=== PATIENT | female | born 1955 | race Two or more races ===

== ENCOUNTER 2021-07-09 13:30 | Outpatient (CLI) | payer OTHER | END 2021-07-09 13:32 | disposition home or self-care (01) | LOC: MAMO-SONO 13:30 | DX: N64.59 Other signs and symptoms in breast (principal); N64.4 Mastodynia; Z12.31 Encounter for screening mammogram for malignant neoplasm of breast ==

== ENCOUNTER → 2022-07-02 | Outpatient (CLI) | payer OTHER | END | disposition home or self-care (01) | LOC: RAD 16:14 | PROVIDERS: ATTEND Physical Medicine & Rehabilitation | DX: M25.511 Pain in right shoulder (principal); M75.21 Bicipital tendinitis, right shoulder ==

== ENCOUNTER 2022-09-03 14:45 | Outpatient (CLI) | payer OTHER | END 2022-09-03 14:49 | disposition home or self-care (01) | LOC: SONOGRAMA 14:45 | DX: N20.0 Calculus of kidney (principal) ==

== ENCOUNTER 2023-04-26 13:43 | Outpatient (CLI) | payer OTHER | END 2023-04-26 13:49 | disposition home or self-care (01) | LOC: RAD 13:43 | PROVIDERS: ATTEND Physical Medicine & Rehabilitation | DX: M17.12 Unilateral primary osteoarthritis, left knee (principal) ==

== ENCOUNTER 2023-07-21 11:02 | Outpatient (CLI) | payer OTHER | END 2023-07-21 11:08 | disposition home or self-care (01) | LOC: RAD 11:02 | PROVIDERS: ATTEND Physical Medicine & Rehabilitation | DX: M17.12 Unilateral primary osteoarthritis, left knee (principal); M25.562 Pain in left knee ==

== ENCOUNTER 2023-09-02 14:11 | Outpatient (CLI) | payer OTHER | END 2023-09-02 14:30 | disposition home or self-care (01) | LOC: MAMO-SONO 14:11 | PROVIDERS: ATTEND Surgery | DX: N63.0 Unspecified lump in unspecified breast (principal); N64.4 Mastodynia; Z12.31 Encounter for screening mammogram for malignant neoplasm of breast ==

== ENCOUNTER 2023-12-14 12:42 | Outpatient (CLI) | payer OTHER | END 2023-12-14 12:51 | disposition home or self-care (01) | LOC: RAD 12:42 | PROVIDERS: ATTEND Physical Medicine & Rehabilitation | DX: M54.50 Low back pain, unspecified (principal); M54.6 Pain in thoracic spine ==

== ENCOUNTER 2025-01-13 12:33 | Emergency (ER) | payer OTHER ==
[~2025-01-13] VITALS: Ht 167.6 cm; Wt 65.3 kg
[2025-01-13] MEDS ORDERED: ONDANSETRON HCL 2 MG/ML VIAL IV ONE (13:45)
[2025-01-13] MEDS ORDERED: FAMOtidine 10 MG/ML (4ML VIAL) IV ONE (13:45)
[2025-01-13] MEDS ORDERED: 0.9 % SODIUM CHLORIDE 1,000 ML IV ONE (13:45)
[2025-01-13] MEDS ORDERED: ONDANSETRON HCL 2 MG/ML VIAL ONE (13:52)
[2025-01-13] MEDS ORDERED: FAMOTIDINE/PF 20 MG/2 ML VIAL ONE (13:52)
[2025-01-13 14:43] LABS: HEMATOCRIT 40.5 % (36.0-45.00); HEMOGLOBIN 13.3 g/dL (12.0-15.00); MEAN CELL VOLUME 84.1 fL (80.00-100.00); MEAN CORPUSCULAR HEMOGLOBIN 27.6 pg (27.00-32.0); MEAN CORPUSCULAR HGB CONC 32.8 g/dl (32.0-36.0); PLATELET COUNT 318 K/uL (150-450); RED BLOOD COUNT 4.82 M/uL (4.00-6.00); RED CELL DISTRIBUTION WIDTH 14.1 % (11.5-14.5)
[2025-01-13 15:13] LABS: ALBUMIN 3.7 gm/dL (3.4-5.0); BILIRUBIN TOTAL 2.05 mg/dL (0.3-1.2); CALCIUM 8.9 mg/dL (8.5-10.1); CREATININE SERUM 0.77 mg/dL (0.55-1.02); GFR 74.11; GLOBULINA 3.8 G/DL (2.4-3.5); POTASSIUM 3.93 mEq/L (3.5-5.1); TOTAL PROTEIN 7.5 gm/dL (6.4-8.2)
[2025-01-13] MEDS ORDERED: CEFTRIAXONE SODIUM 1,000 MG VIAL IV ONE (15:30)
[2025-01-13 15:39] LABS: PH,URINE 5.5 (5.0-8.0); URINE APPEARANCE Cloudy; URINE BILIRRUBIN Negative (NEGATIVE); URINE BLOOD Negative; URINE COLOR Yellow; URINE GLUCOSE Negative (NEGATIVE); URINE KETONE Trace (NEGATIVE); URINE LEUKOCYTE Moderate; URINE NITRATE Negative; URINE PROTEIN Trace (NEGATIVE); URINE UROBILINOGEN 0.2 E.U./dl
[2025-01-13 15:42] LABS: URINE BACTERIA 9182.3 uL (0.0-1933); URINE EPITHELIAL CELLS 109.8 uL (0.0-38.8); URINE RBC 10.6 uL (0.0-20.8); URINE WBC 153.8 uL (0.0-23.2)
[2025-01-13 16:35] LABS: URINE CAST 0.44 uL (0.0-1.40)
[2025-01-13] MEDS ORDERED: CEFTRIAXONE SODIUM 1,000 MG VIAL ONE (16:46)
== END 2025-01-13 17:50 | disposition home or self-care (01) ==
LOC: ER 12:35
PROVIDERS: General Practice
DX: N39.0 Urinary tract infection, site not specified (principal); K52.9 Noninfective gastroenteritis and colitis, unspecified; E86.0 Dehydration; R11.2 Nausea with vomiting, unspecified; Z20.822 Contact with and (suspected) exposure to COVID-19
CPT/HCPCS: 36415; 96365; 96366; 99282; J0696; J2405; J3490; J7030

== ENCOUNTER 2025-01-15 14:43 | Outpatient (CLI) | payer OTHER | END 2025-01-15 14:51 | disposition home or self-care (01) | LOC: MAMO-SONO 14:43 | DX: E04.1 Nontoxic single thyroid nodule (principal); N64.4 Mastodynia; N63.0 Unspecified lump in unspecified breast; N60.09 Solitary cyst of unspecified breast; Z12.31 Encounter for screening mammogram for malignant neoplasm of breast ==

== ENCOUNTER 2025-10-25 11:48 | Outpatient (CLI) | payer OTHER | END 2025-10-25 11:58 | disposition home or self-care (01) | LOC: RAD 11:48 | PROVIDERS: ATTEND Physical Medicine & Rehabilitation | DX: M17.12 Unilateral primary osteoarthritis, left knee (principal) ==